=== PATIENT | female | born 1995 | race Caucasian/White ===

== ENCOUNTER 2020-06-16 17:57 | Emergency (ER) | payer SELFPAY ==
--- OUTSIDE RECORDS SUMMARY | 2020-06-16 18:00 | XMS REPORT | Continuity of Care Document ---
:1995 Author Organization [facility] t Address [address] [place] [address] Care Team Providers Name Role Phone PROVIDER, TEMP Attending Clinician Unavailable Payers Payer Name Policy Type Policy Number Effective Date Expiration Date S ource Problems This patient has no known problems. Allergies, Adverse Reactions, Alerts Allergy Allergy Status Severity Reaction(s) Onset Inactive Treating Comm ents Source Name Type Date Date Clinician Sulfa DA Active U 2019-0 [facility] ([facility] [place] [facility] [facility]: d [facility] 00 [facility] Sulfa DA Active U 2017- [facility] ([facility] 1-24 [place] [facility] 00:[facility]: d Antibiot 00 [facility] Medications This patient has no known medications. Procedures This patient has no known procedures. Results Test Description Test Time Test Comments Results Result Comments Source COMPREHENSIVE METABOLIC PANEL 2018-08-11 14:34:00 Test Item Value Reference Range Interpretation Comme nts SODIUM (test code = NA) 145 mmol/L 137-145 N POTASSIUM (test code = K) 4.3 mmol/L 3.4-5.0 N CHLORIDE (test code = CL) 108 mmol/L 98-107 H CARBON DIOXIDE (test code = 25 mmol/L 22-30 N CO2) GLUCOSE (test code = GLU) 104 mg/dL 74-106 N BLOOD UREA NITROGEN (test 11 mg/dL 7-17 N code = BUN) GLOMERULAR FILTRATION RATE >=60 max estimate >60 The estimated glomerular (test code = GFR) filtration rate is computed usingpatient ra ce, age (>18), sex, and serum creatinine. If anyof the needed data deric ments are missing the Lab oratory cannot compute an estimation of t he glomerular filt ration rate. CREATININE (test code = 0.62 mg/dL 0.52-1.04 N CREAT) TOTAL PROTEIN (test code = 7.7 g/dL 6.3-8.2 N PROT) ALBUMIN (test code = ALB) 4.5 g/dL 3.5-5.0 N CALCIUM (test code = CA) 9.3 mg/dL 8.4-10.2 N BILIRUBIN TOTAL (test code = 0.6 mg/dL 0.2-1.3 N BILT) BILIRUBIN CONJUGATED (test 0 mg/dL 0-0.3 N ~ ~~~~~~~~~~~~~~~~~~~~~~~~~~ code = BILCON) ~~~~~~~~~~~~~ ~~~~~~~~~~~~~~ ~~~~~~CONJUGATE D BILIRUBIN IS THE REPLACEM ENT ASSAY FOR DIRECTBILIRUBIN .~~~~~~~~~~~ ~~~~~~~~~~~~~~~ ~~~~~~~~~~~~ ~~~~~~~~~~~~~~~ ~~~~~~~ BILIRUBIN UNCONJUGATED (test 0.3 mg/dL 0-1.1 N code = BILUNC) SGOT/AST (test code = AST) 28 U/L 15-46 N SGPT/ALT (test code = ALT) 28 U/L 13-69 N ALKALINE PHOSPHATASE (test 55 U/L 38-126 N code = ALKP) DATE OF LAST MENSTRUAL PERIOD: 07/19/19HCG SERUM [id number] 14:34:00 Test Item Value Reference Range Interpretation Comments HCG SERUM QUAL (test code = HCGQL) NEGATIVE NEGATIVE DATE OF LAST MENSTRUAL PERIOD: 07/19/19CBC W/AUTO [id number] 14:16:00 Test Item Value Reference Range Interpretation Comments WHITE BLOOD CELL (test code = 7.7 x10 3/uL 5.0-12.0 N WBC) RED BLOOD CELL (test code = 4.85 x10 6/uL 4.20-5.40 N RBC) HEMOGLOBIN (test code = HGB) 13.0 g/dL 12.0-16.0 N HEMATOCRIT (test code = HCT) 42.1 % 36.0-46.0 N MEAN CELL VOLUME (test code = 87 fL 81-99 N MCV) MEAN CELL HGB (test code = MCH) 26.8 pg 27-31 L MEAN CELL HGB CONCENTRATION 30.9 g/dL 33-37 L (test code = MCHC) RED CELL DISTRIBUTION WIDTH 15.0 % 11.5-15.5 N (test code = RDW) PLATELET COUNT (test code = 217 x10 3/uL 130-400 N PLT) MEAN PLATELET VOLUME (test code 11.6 fL 9.4-16.4 N = MPV) NEUTROPHIL % (test code = NT%) 52.4 % 43-65 N IMMATURE GRANULOCYTE % (test 0.1 % 0.0-2.0 N code = IG%) LYMPHOCYTE % (test code = LY%) 38.5 % 20.5-45.5 N MONOCYTE % (test code = MO%) 6.0 % 5.5-11.7 N EOSINOPHIL % (test code = EO%) 2.5 % 0.9-2.9 N BASOPHIL % (test code = BA%) 0.5 % 0.2-1.0 N NUCLEATED RBC % (test code = 0.0 % 0-1.0 N NRBC%) NEUTROPHIL # (test code = NT#) 4.01 x10 3/uL 2.2-4.8 N IMMATURE GRANULOCYTE # (test 0.01 x10 3/uL 0-0.03 N code = IG#) LYMPHOCYTE # (test code = LY#) 2.95 x10 3/uL 1.3-2.9 H MONOCYTE # (test code = MO#) 0.46 x10 3/uL 0.3-0.8 N EOSINOPHIL # (test code = EO#) 0.19 x10 3/uL 0.0-0.2 N BASOPHIL # (test code = BA#) 0.04 x10 3/uL 0.0-0.1 N COMPREHENSIVE METABOLIC [id number] 14:16:00 Test Item Value Reference Range Interpretation Comments SODIUM (test code = 145 mmol/L 137-145 N NA) POTASSIUM (test code 4.3 mmol/L 3.4-5.0 N = K) CHLORIDE (test code 108 mmol/L 98-107 H = CL) CARBON DIOXIDE (test 25 mmol/L 22-30 N code = CO2) GLUCOSE (test code = 104 mg/dL 74-106 N GLU) BLOOD UREA NITROGEN 11 mg/dL 7-17 N (test code = BUN) GLOMERULAR >=60 max >60 The estimated FILTRATION RATE estimate glomerular (test code = GFR) filtration rate is computed usingpatient ra ce, age (>18), sex, and serum creatinin e. If anyof the ne eded data elements a re missing the Laboratory jane ot compute an estimation of t he glomerular filtration rate . CREATININE (test 0.62 mg/dL 0.52-1.04 N code = CREAT) TOTAL PROTEIN (test 7.7 g/dL 6.3-8.2 N code = PROT) ALBUMIN (test code = 4.5 g/dL 3.5-5.0 N ALB) CALCIUM (test code = 9.3 mg/dL 8.4-10.2 N CA) BILIRUBIN TOTAL 0.6 mg/dL 0.2-1.3 N (test code = BILT) BILIRUBIN CONJUGATED 0 mg/dL 0-0.3 N ~~~~~~~ ~~~~~~~~~~~~ (test code = BILCON) ~~~~~~~ ~~~~~~~~~~~~ ~~~~~~~~~~~~~~~ ~~~~ ~~~CONJUGATED BILIRUBIN IS TH E REPLACEMENT ASS AY FOR DIRECTBILIRUBIN .~~~ ~~~~~~~~~~~~~~~ ~~~~ ~~~~~~~~~~~~~~~ ~~~~ ~~~~~~~~~~~~~~~ ~~~~ BILIRUBIN 0.3 mg/dL 0-1.1 N UNCONJUGATED (test code = BILUNC) SGOT/AST (test code 28 U/L 15-46 N = AST) SGPT/ALT (test code 28 U/L 13-69 N = ALT) ALKALINE PHOSPHATASE 55 U/L 38-126 N (test code = ALKP) DATE OF LAST MENSTRUAL PERIOD: 07/19/19HCG SERUM [id number] 14:16:00 Test Item Value Reference Range Interpretation Comments HCG SERUM QUAL (test code = HCGQL) NEGATIVE DATE OF LAST MENSTRUAL PERIOD: 07/19/19UA RFLX MICR CULT IF [id number] 14:14:00 Test Item Value Reference Range Interpretation Comments UA COLOR (test code = Straw Yellow COLU) UA APPEARANCE (test Clear Clear code = APPU) UA GLUCOSE DIPSTICK Negative Negative (test code = DGLUU) UA BILIRUBIN DIPSTICK Negative Negative (test code = BILU) UA KETONE DIPSTICK Negative mg/dL Negative (test code = KETU) UA SPECIFIC GRAVITY 1.010 <1.030 (test code = SGU) UA BLOOD DIPSTICK Negative Negative (test code = PHIL) UA PH DIPSTICK (test 7.0 5.0-8.0 code = PERI) UA PROTEIN DIPSTICK NEGATIVE mg/dL Negative (test code = PROU) UA UROBILINOGEN Negative mg/dL Negative DIPSTICK (test code = URO) UA NITRITE DIPSTICK Negative Negative (test code = J CARLOS) UA LEUKOCYTE ESTERASE NEGATIVE Negative DIPSTICK (test code = LEUU) UA WBC (test code = 0-3 /HPF <4-5 <10 WBC/ HPF = WBCUR) PYURIA ABSENT URINE CULTURE NOT INDICATED UA RBC (test code = 0-3 /HPF <4-5 RBCU) UA BACTERIA (test None /HPF None-Rare code = BACU) UA SQUAMOUS CELLS 0-5 (RARE) /HPF 0-5 (RARE) (test code = SQU) UA MUCUS (test code = Rare /LPF <Rare A MUCU) less than 18 yrs old, neutropenic, or urological surgery? NOPrimary Indication for Culture: OtherOther Indication: PREOPChemistry - [id number] 22:58:00 Test Item Value Reference Range Interpretation Comments Chemistry - 01919.19 mIU/mL See Ranges Males and Specials (test code Nonpregn ant females: = HCGQ) Less than 10 mIU/mLPregnancy , weeks of gestat ion mIU/mL 0. 2 - 1 week 5 - 50 1 - 2 weeks 50 - 500 2 - 3 weeks 1 00 - 5,000 3 - 4 we eks 500 - 10,000 4 - 5 weeks 1,000 - 5 0,000 5 - 6 weeks 10, 000 - 100,000 6 - 8 weeks 15,000 - 200,00 0 2 - 3 months 10,000 - 100,000 Type [id number] 22:54:00 Test Item Value Reference Range Interpretation Comments Blood Type Rh (test code = BT) A POSITIVE [id number] 22:43:00 Test Item Value Reference Range Interpretation Comments Chemistry (test 136 mmol/L 136-145 N code = NA-T) Chemistry (test 3.9 mmol/L 3.5-5.1 N code = K-T) Chemistry (test 105 mmol/L 98-107 N code = CL) Chemistry (test 22 mmol/L 22-29 N code = CO2) Chemistry (test 13 mmol/L 10-20 N code = ANGP) Chemistry (test 13 mg/dL 7.0-18.7 N code = BUN) Chemistry (test 0.65 mg/dL 0.6-1.1 N code = CREATT) Chemistry (test Greater than 90 Referenc e Range for code = EGFRMDRD) Estimated G FR: Gre ater than 90 mL/min/ 1.73 m2NOTE:The MDRD equation has no t been validated for use with theeld erly (over 70 years of age), women, patients with serious comorbi d condition or pe rsons with extremes o fbody size, muscle ma ss, or nutritional status. Chemistry (test 82 mg/dL 70-105 N code = GLU-T) Chemistry (test 9.3 mg/dL 7.8-10.44 N code = CA) Chemistry (test 0.4 mg/dL 0.2-1.2 N code = TBILI) Chemistry (test 7.5 g/dL 6.0-8.3 N code = TP) Chemistry (test 4.1 g/dL 3.5-5.0 N code = ALB) Chemistry (test 3.4 g/dL 2.4-3.5 N code = GLOB) Chemistry (test 1.2 g/dL 1.2-2.2 N code = AG) Chemistry (test 52 U/L 40-150 N code = ALP) Chemistry (test 14 U/L 5-34 N code = AST) Chemistry (test 10 U/L 8-55 N code = ALT) [id number] 22:37:00 Test Item Value Reference Range Interpretation Comments Urinalysis (test code = YELLOW Yellow UACLR) Urinalysis (test code = CLEAR Clear UACLY) Urinalysis (test code = 1.017 1.002-1.036 N SPGR) Urinalysis (test code = 6.0 5.0-9.0 N PERI) Urinalysis (test code = Moderate Negative A UALEU) Urinalysis (test code = Negative Negative UANIT) Urinalysis (test code = Negative mg/dL Neg-Trace PROUADIP) Urinalysis (test code = Negative mg/dL Negative GLUCU) Urinalysis (test code = Negative mg/dL Negative KETU) Urinalysis (test code = 1.0 mg/dL 0.2-1.0 UAUROB) Urinalysis (test code = Negative Negative UABIL) Urinalysis (test code = Negative Negative UABLD) Urinalysis (test code = 0-3 HPF 0-3 UARBC) Urinalysis (test code = 0-3 HPF 0-3 UAWBC) Urinalysis (test code = 0-3 HPF 0-3 UASQUAM) Urinalysis (test code = Rare-Few HPF None Seen UABAC) Urinalysis (test code = 0-3 HYALINE CAST LPF 0-3 Hyaline UACAST) Urine Source: Urine [id number] 22:25:00 Test Item Value Reference Range Interpretation Comments Hematology (test code = WBCT) 7.4 thou/uL 4.8-10.8 N Hematology (test code = RBCT) 3.89 mill/uL 4.20-5.40 L Hematology (test code = HGBT) 12.1 g/dL 12.0-16.0 N Hematology (test code = HCTT) 34.5 % 36.0-47.0 L Hematology (test code = MCV) 88.6 fl 81.0-99.0 N Hematology (test code = MCH) 31.0 pg 27.0-31.0 N Hematology (test code = MCHC) 35.0 g/dL 32.0-36.0 N Hematology (test code = RDW) 12.9 % 11.5-14.5 N Hematology (test code = PLTT) 220 thou/uL 130-400 N Hematology (test code = MPV) 7.9 fL 7.4-10.4 N Hematology (test code = %NEUT) 59.4 % 42.0-75.0 N Hematology (test code = %LYMPH) 32.1 % 21.0-51.0 N Hematology (test code = %MONO) 6.6 % 0.0-10.0 N Hematology (test code = %EOS) 1.5 % 0.0-10.0 N Hematology (test code = %BASO) 0.3 % 0.0-1.0 N Hematology (test code = NEUT#) 4.4 thou/uL 1.40-6.50 N Hematology (test code = LYMPH#) 2.4 thou/uL 1.20-3.40 N Hematology (test code = MONO#) 0.5 thou/uL 0.11-0.59 N Hematology (test code = EOS#) 0.1 thou/uL 0.0-0.7 N Hematology (test code = BASO#) 0.0 thou/uL 0.0-0.2 N Chemistry - [id number] 22:23:00 Test Item Value Reference Range Interpretation Comments Chemistry - Specials POSITIVE NEGATIVE A Method of sensitivity- (test code = BHCGST) Indete rminant: results should be repeated after 48-72 hrs Positive: results may be detected as ear ly as 1 day after the first missed menses.
[2020-06-16 19:55] LABS: Urine Blood 1+ (NEG); Urine Glucose NEGATIVE (NEG); Urine Protein NEGATIVE (NEG); Urine pH 6.5 (5.0-7.0)
[2020-06-16 20:46] LABS: Urine Bacteria <20 /HPF (<20)
[2020-06-16 20:47] LABS: Absolute Lymphocytes (CBC) 2.9 K/uL (0.7-4.9); Basophils % 0.6 % (0-1.3); Hematocrit 38.3 % (36.0-45.0); Lymphocytes % 37.9 % (15.3-44.8); MPV 10.3 fL (7.6-11.3); RBC Red Blood Cell Count 4.33 M/uL (3.86-4.86)
[2020-06-16 21:00] LABS: BUN Blood Urea Nitrogen 11 mg/dL (7-18); Bicarbonate 26 mmol/L (21-32); Glucose Level 80 mg/dL (74-106); Potassium 3.4 mmol/L (3.5-5.1); Sodium Level 139 mmol/L (136-145)
[2020-06-16] MEDS ORDERED: MORPHINE 2 MG/ML SYR ONE (22:43)
[2020-06-16] MEDS ORDERED: ONDANSETRON 4 MG/2 ML VIAL ONE (22:43)
--- NOTE | 2020-06-16 23:33 | EDPHYS ---
Physician Documentation [facility] Name: Melodie Thornton Age: 24 yrs Sex: Female : 1995 Arrival Date: 06/16/2020 Time: 17:59 Bed 6 Private MD: ED Physician Deepak Burk HPI: 06/16 20:24 This 24 yrs old Female presents to ER via Ambulatory with complaints of mh7 Vaginal Bleeding. 20:24 The patient presents with vaginal bleeding that is moderate. Onset: The mh7 symptoms/episode began/occurred 1 week(s) ago. Modifying factors: The symptoms are alleviated by nothing, the symptoms are aggravated by nothing. Associated signs and symptoms: Pertinent negatives: constipation, cramping, diarrhea, dyspareunia, dysuria, fever, hematuria, nausea, urinary frequency, vaginal discharge, vomiting. Severity of symptoms: At their worst the symptoms were moderate, 2 day(s) ago, in the emergency department the symptoms have improved, moderately. The patient's method of control includes tubal ligation. 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 - Social history:: Smoking status: Patient reports the use of cigarette tobacco products, smokes one-half pack cigarettes per day. ROS: 20:24 Constitutional: Negative for fever, chills, and weight loss, Eyes: Negative for injury, mh7 pain, redness, and discharge, ENT: Negative for injury, pain, and discharge, Neck: Negative for injury, pain, and swelling, Cardiovascular: Negative for chest pain, palpitations, and edema, Respiratory: Negative for shortness of breath, cough, wheezing, and pleuritic chest pain, Abdomen/GI: Negative for abdominal pain, nausea, vomiting, diarrhea, and constipation, Back: Negative for injury and pain, MS/Extremity: Negative for injury and deformity, Skin: Negative for injury, rash, and discoloration, Neuro: Negative for headache, weakness, numbness, tingling, and seizure, Psych: Negative for depression, anxiety, suicide ideation, homicidal ideation, and hallucinations, Allergy/Immunology: Negative for hives, rash, and allergies, Endocrine: Negative for neck swelling, polydipsia, polyuria, polyphagia, and marked weight changes, Hematologic/Lymphatic: Negative for swollen nodes, abnormal bleeding, and unusual bruising. Exam: 20:24 Constitutional: This is a well developed, well nourished patient who is awake, alert, mh7 and in no acute distress. Head/Face: Normocephalic, atraumatic. Eyes: Pupils equal round and reactive to light, extra-ocular motions intact. Lids and lashes normal. Conjunctiva and sclera are non-icteric and not injected. Cornea within normal limits. Periorbital areas with no swelling, redness, or edema. Neck: Trachea midline, no thyromegaly or masses palpated, and no cervical lymphadenopathy. Supple, full range of motion without nuchal rigidity, or vertebral point tenderness. No Meningismus. Chest/axilla: Normal chest wall appearance and motion. Nontender with no deformity. No lesions are appreciated. Cardiovascular: Regular rate and rhythm with a normal S1 and S2. No gallops, murmurs, or rubs. Normal PMI, no JVD. No pulse deficits. Respiratory: Lungs have equal breath sounds bilaterally, clear to auscultation and percussion. No rales, rhonchi or wheezes noted. No increased work of breathing, no retractions or nasal flaring. 20:24 Back: No spinal tenderness. No costovertebral tenderness. Full range of motion. Skin: Warm, dry with normal turgor. Normal color with no rashes, no lesions, and no evidence of cellulitis. MS/ Extremity: Pulses equal, no cyanosis. Neurovascular intact. Full, normal range of motion. Neuro: Awake and alert, GCS 15, oriented to person, place, time, and situation. Cranial nerves II-XII grossly intact. Motor strength 5/5 in all extremities. Sensory grossly intact. Cerebellar exam normal. Normal gait. Psych: Awake, alert, with orientation to person, place and time. Behavior, mood, and affect are within normal limits. 20:24 Abdomen/GI: Inspection: abdomen appears normal, Bowel sounds: normal, in all quadrants, Palpation: moderate abdominal tenderness, in the suprapubic area and left lower quadrant, Rectal exam: the exam is deferred, because of patient request, Indicators: McBurney's point is not tender, Whitfield's sign is negative, Rovsing's sign is negative, Obturator sign is negative, Psoas sign is negative, Liver: no appreciated palpable abnormalities, Hernia: not appreciated. 23:29 : CVA tenderness, is absent, Pelvic Exam: External exam: is normal, Speculum exam: mh7 mild bleeding, no cervicitis, os that is closed, no tissue in cervix is seen, no tissue in vagina is seen, bimanual exam reveals no cervical motion tenderness, os that is closed, normal sized uterus, no uterine tenderness, no adnexa tenderness or masses bilaterally, discharge, is not appreciated, the nurse was present for the exam, Bladder: is normal, non-distended, non-tender, Rectal exam: is refused by patient or guardian. Vital Signs: 18:09 BP 122 / 74; Pulse 66; Resp 16; Temp 97.7; Pulse Ox 100% on R/A; Pain 5/10; hb 21:00 BP 117 / 85; Pulse 75; Resp 17; Pulse Ox 100% ; rr5 22:00 BP 124 / 89; Pulse 70; Resp 19; Pulse Ox 98% ; rr5 23:00 BP 126 / 78; Pulse 63; Resp 15; Pulse Ox 98% ; rr5 23:50 BP 110 / 70; Pulse 60; Resp 19; Pulse Ox 99% ; rr5 MDM: 23:29 Differential diagnosis: appendicitis, dysmenorrhea, ectopic , endometriosis, mh7 kidney stone, menometrorrhagia, threatened Ab, inevitable Ab, complete Ab, retained Ab, septic Ab, missed Ab, uterine fibroids, urinary tract infection, vaginosis. Data reviewed: vital signs, nurses notes, lab test result(s), CBC, electrolytes, urinalysis, UPT: negative radiologic studies, CT scan. Data interpreted: Pulse oximetry: on room air is 100 %. Interpretation: normal. Counseling: I had a detailed discussion with the patient and/or guardian regarding: the historical points, exam findings, and any diagnostic results supporting the discharge/admit diagnosis, lab results, radiology results, the need for outpatient follow up, an OB/Gyne specialist, to return to the emergency department if symptoms worsen or persist or if there are any questions or concerns that arise at home. Response to treatment: the patient's symptoms have markedly improved after treatment. 23:33 Patient medically screened. [facility] 06/16 18:03 Order name: Urine Culture [facility] 06/16 18:03 Order name: Urine Microscopic Only; Complete Time: 20:47 [facility] 06/16 19:45 Order name: Urine Dipstick--Ancillary (enter results); Complete Time: 20:00 06/16 19:45 Order name: Urine --Ancillary (enter results); Complete Time: 20:00 06/16 20:00 Order name: Abo/rh Typing; Complete Time: 22:04 [facility] 06/16 20:00 Order name: Basic Metabolic Panel; Complete Time: 21:10 [facility] 06/16 18:03 Order name: Urine Test (obtain specimen); Complete Time: 19:43 [facility] 06/16 18:03 Order name: Urine Dipstick-Ancillary (obtain specimen); Complete Time: 19:43 [facility] 06/16 20:00 Order name: CBC with Diff; Complete Time: 20:51 [facility] 06/16 20:00 Order name: IV Saline Lock; Complete Time: 21:18 [facility] 06/16 20:00 Order name: Labs collected and sent; Complete Time: 21:18 [facility] 06/16 21:11 Order name: CT Abd/Pelvis - IV Contrast Only [facility] 06/16 20:00 Order name: NPO; Complete Time: 21:18 [facility] Administered Medications: 22:30 Drug: Zofran (Ondansetron) 4 mg Route: IVP; Site: right antecubital; rr5 23:30 Follow up: Response: No adverse reaction; Pain is decreased; RASS: Alert and Calm (0) rr5 22:32 Drug: morphine 2 mg {Note: rass 0.} Route: IVP; Site: right antecubital; rr5 23:30 Follow up: Response: No adverse reaction; Pain is decreased; RASS: Alert and Calm (0) rr5 Disposition: 06/16/20 23:33 Discharged to Home. Impression: Abnormal uterine and vaginal bleeding, unspecified, Left ovarian Cyst. - Condition is Stable. - Discharge Instructions: Abnormal Uterine Bleeding, Ovarian Cyst, [id number]. - Medication Reconciliation Form, Thank You Letter, Antibiotic Education, Prescription Opioid Use form. - Follow up: Michelle Peña MD; When: 1 - 2 days; Reason: Worsening of condition, Recheck today's complaints. - Problem is new. - Symptoms have improved. Signatures: Dispatcher [employer] EDMS Brooklynn Red, FLIGHT ENGINEER PERFORMANCE QUALIFIED-C FLIGHT ENGINEER PERFORMANCE QUALIFIED-Csnw Madelyn Heredia, RN RN hb Rodney Guerrier RN RN rr5 Deepak Burk MD MD 7 Corrections: (The following items were deleted from the chart) 23:32 18:13 PSHx: None; hb rr5 23:52 23:33 06/16/2020 23:33 Discharged to Home. Impression: Abnormal uterine and vaginal rr5 bleeding, unspecified; Left ovarian Cyst. Condition is Stable. Forms are Medication Reconciliation Form, Thank You Letter, Antibiotic Education, Prescription Opioid Use. Follow up: Michelle Peña; When: 1 - 2 days; Reason: Worsening of condition, Recheck today's complaints. Problem is new. Symptoms have improved. [facility] 23:58 23:52 06/16/2020 23:33 Discharged to Home. Impression: Abnormal uterine and vaginal rr5 bleeding, unspecified; Left ovarian Cyst. Condition is Stable. Discharge Instructions: Abnormal Uterine Bleeding, Ovarian Cyst, [id number]. Forms are Medication Reconciliation Form, Thank You Letter, Antibiotic Education, Prescription Opioid Use. Follow up: Michelle Peña; When: 1 - 2 days; Reason: Worsening of condition, Recheck today's complaints. Problem is new. Symptoms have improved. rr5
--- NOTE | 2020-06-16 23:33 | ER ---
Nurse's Notes [facility] Name: Melodie Thornton Age: 24 yrs Sex: Female : 1995 Arrival Date: 06/16/2020 Time: 17:59 Bed 6 Private MD: Diagnosis: Abnormal uterine and vaginal bleeding, unspecified;Left ovarian Cyst Presentation: 06/16 18:09 Chief complaint: Patient states: Spotty vaginal bleeding x 2 days, low back pain and hb left lower abdominal pain today. Coronavirus screen: At this time, the client does not indicate any symptoms associated with coronavirus-19. Ebola Screen: No symptoms or risks identified at this time. Initial Sepsis Screen: Does the patient meet any 2 criteria? No. Patient's initial sepsis screen is negative. Does the patient have a suspected source of infection? No. Patient's initial sepsis screen is negative. Risk Assessment: Do you want to hurt yourself or someone else? Patient reports no desire to harm self or others. Onset of symptoms was June 13, 2020. 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 - Social history:: Smoking status: Patient reports the use of cigarette tobacco products, smokes one-half pack cigarettes per day. Screenin:30 Abuse screen: Denies threats or abuse. Denies injuries from another. Nutritional rr5 screening: No deficits noted. Tuberculosis screening: No symptoms or risk factors identified. Fall Risk IV access (20 points). Total Renae Fall Scale indicates No Risk (0-24 pts). Assessment: 20:00 General: Appears in no apparent distress. uncomfortable, Behavior is calm, cooperative, rr5 appropriate for age. 20:00 Pain: Complains of pain in abdomen and pelvis and left lower quadrant Pain radiates to rr5 left low back and right low back Pain currently is 5 out of 10 on a pain scale. Quality of pain is described as aching, Pain began gradually, Is intermittent. Neuro: Level of Consciousness is awake, alert, obeys commands, Oriented to person, place, time. Cardiovascular: Capillary refill < 3 seconds Patient's skin is warm and dry. Respiratory: Airway is patent Respiratory effort is even, unlabored, Respiratory pattern is regular, symmetrical. GI: Reports lower abdominal pain. : Urine is clear, Reports vaginal bleeding that is spotty. EENT: No signs and/or symptoms were reported regarding the EENT system. Derm: Skin is intact, is healthy with good turgor, Skin temperature is warm. Musculoskeletal: Circulation, motion, and sensation intact. Capillary refill < 3 seconds. 21:00 Reassessment: Patient appears in no apparent distress at this time. Patient is alert, rr5 oriented x 3, equal unlabored respirations, skin warm/dry/pink. 22:00 Reassessment: Patient appears in no apparent distress at this time. Patient is alert, rr5 oriented x 3, equal unlabored respirations, skin warm/dry/pink. for CT abdomen with contrast. 23:10 Reassessment: Patient appears in no apparent distress at this time. Patient is alert, rr5 oriented x 3, equal unlabored respirations, skin warm/dry/pink. no complaints made Patient states feeling better. Patient states symptoms have improved. 23:50 Reassessment: Patient appears in no apparent distress at this time. Patient is alert, rr5 oriented x 3, equal unlabored respirations, skin warm/dry/pink. discharge instruction given and explained without complaints made. Vital Signs: 18:09 BP 122 / 74; Pulse 66; Resp 16; Temp 97.7; Pulse Ox 100% on R/A; Pain 5/10; hb 21:00 BP 117 / 85; Pulse 75; Resp 17; Pulse Ox 100% ; rr5 22:00 BP 124 / 89; Pulse 70; Resp 19; Pulse Ox 98% ; rr5 23:00 BP 126 / 78; Pulse 63; Resp 15; Pulse Ox 98% ; rr5 23:50 BP 110 / 70; Pulse 60; Resp 19; Pulse Ox 99% ; rr5 ED Course: 17:59 Patient arrived in ED. as 18:12 Triage completed. hb 18:13 Arm band placed on. hb 19:42 Deepak Burk MD is Attending Physician. [facility] 20:06 Guerrier, Rodney, RN is Primary Nurse. rr5 20:30 Patient has correct armband on for positive identification. Placed in gown. Bed in low rr5 position. Call light in reach. Side rails up X2. Pulse ox on. NIBP on. 20:30 Inserted saline lock: 20 gauge in right antecubital area, using aseptic technique. rr5 ,using aseptic technique. inserted by chin Blood collected. 22:11 CT Abd/Pelvis - IV Contrast Only In Process Unspecified. EDMS 23:29 Assist provider with pelvic exam: Set up pelvic tray. Performed by Deepak Burk MD rr5 Patient tolerated chaperoned by darell thomas. 23:32 Michelle Peña MD is Referral Physician. [facility] 23:45 IV discontinued, intact, bleeding controlled, No redness/swelling at site. Pressure rr5 dressing applied. 23:56 Primary Nurse role handed off by Rodney Guerrier RN rr5 Administered Medications: 22:30 Drug: Zofran (Ondansetron) 4 mg Route: IVP; Site: right antecubital; rr5 23:30 Follow up: Response: No adverse reaction; Pain is decreased; RASS: Alert and Calm (0) rr5 22:32 Drug: morphine 2 mg {Note: rass 0.} Route: IVP; Site: right antecubital; rr5 23:30 Follow up: Response: No adverse reaction; Pain is decreased; RASS: Alert and Calm (0) rr5 Outcome: 23:33 Discharge ordered by . 7 23:50 Discharged to home ambulatory. rr5 23:50 Condition: stable 23:50 Discharge instructions given to patient, Instructed on discharge instructions, follow up and referral plans. Demonstrated understanding of instructions, follow-up care. 23:52 Patient left the ED. rr5 23:58 Patient left the ED. rr5 Signatures: Dispatcher [employer] Tiera Jackson Heather, RN RN Rodney Guerrier RN RN rr5 Deepak Burk MD MD [facility] Corrections: (The following items were deleted from the chart) 23:32 18:13 PSHx: None; hb rr5
[2020-06-17 03:23] VITALS: TEMP 97.7
[2020-06-17 03:46] VITALS: BP 110/70; O2SAT 99
--- NOTE | 2020-06-18 10:51 | RAD REPORT ---
EXAM DESCRIPTION: CT - Abdomen Pelvis W Contrast - 06/17/2020 4:04 am CLINICAL HISTORY: The patient is 24 years old and is Female; ABD PAIN TECHNIQUE: Axial computed tomography images of the abdomen and pelvis with intravenous contrast. S agittal and coronal reformatted images were created and reviewed. This CT exam was performed using one or more of the following dose reduction techniques: automated exposure control, adjustment of t he mA and/or kV according to patient size, and/or use of iterative reconstruction technique. DLP: 944 mGy*cm COMPARISON: None. FINDINGS: LUNG BASES: Lung bases are clear. HEART: Visualized heart is normal. ABDOMEN: LIVER: Unremarkable. No mass. GALLBLADDER AND BILE DUCTS: Unremarkable. No calcified stones. No ductal dilation. PANCREAS: Unremarkable. No mass. No ductal dilation. SPLEEN: Unremarkable. No splenomegaly. ADRENALS: Unremarkable. No mass. KIDNEYS AND URETERS: Unremarkable. No solid mass. No hydronephrosis. STOMACH AND BOWEL: Unremarkable. No obstruction. No mucosal thickening. PELVIS: APPENDIX: The appendix is seen and is within normal limits. BLADDER: Bladder is decompressed. REPRODUCTIVE: 1.6 cm left ovarian cyst. Prior tubal ligation. ABDOMEN and PELVIS: INTRAPERITONEAL SPACE: Unremarkable. No free air. No significant fluid collection. BONES/JOINTS: No acute fracture. No dislocation. SOFT TISSUES: Unremarkable. VASCULATURE: Unremarkable. No abdominal aortic aneurysm. LYMPH NODES: Unremarkable. No enlarged lymph nodes. IMPRESSION: 1. No acute abdominal or pelvic abnormality. 2. 1.6 cm left ovarian cyst. No follow-up imaging is recommended. Reference: US recommendations based on Radiology 2010 Mar;256(3):943-54; CT/MR recommendations based on J Am Nav Radiol 2013;10:675-681. 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 The interpreting r adiologist is fully responsible for the content of the report.
== END 2020-06-16 23:58 | disposition home or self-care (01) ==
LOC: ER 17:57
DX: N83.202 Unspecified ovarian cyst, left side (principal); F17.210 Nicotine dependence, cigarettes, uncomplicated; Z88.2 Allergy status to sulfonamides
CPT/HCPCS: 36415; 74177; 80048; 81003; 81015; 81025; 85025; 86900; 86901; 87086; 87088; 96374; 96375; 99284; J2270; J2405; Q9967

== ENCOUNTER 2020-09-14 20:18 | Emergency (ER) | payer SELFPAY ==
--- OUTSIDE RECORDS SUMMARY | 2020-09-14 20:22 | XMS REPORT | Continuity of Care Document ---
:1995 Author Organization [facility] t Address [address] [place] [address] Care Team Providers Name Role Phone PROVIDER, TEMP Attending Clinician Unavailable Payers Payer Name Policy Type Policy Number Effective Date Expiration Date S ource Problems This patient has no known problems. Allergies, Adverse Reactions, Alerts Allergy Allergy Status Severity Reaction(s) Onset Inactive Treating Comm ents Source Name Type Date Date Clinician Sulfa DA Active U 2019-0 [facility] ([facility] 1 [place] [facility] 00:00: d Antibiot 00 [facility]) Center Sulfa DA Active U 2017- [facility] ([facility] - [place] [facility] 00:00: d Antibiot 00 Medical [...] DATE OF LAST MENSTRUAL PERIOD: 07/19/19HCG SERUM [id number] 14:34:00 Test Item Value Reference Range Interpretation Comments HCG SERUM QUAL (test code = HCGQL) NEGATIVE NEGATIVE DATE OF LAST MENSTRUAL PERIOD: 07/19/19CBC W/AUTO [id number] 14:16:00 Test Item Value Reference Range Interpretation [...] 0.04 x10 3/uL 0.0-0.1 N COMPREHENSIVE METABOLIC [id number] 14:16:00 Test Item Value Reference Range Interpretation [...] DATE OF LAST MENSTRUAL PERIOD: 07/19/19HCG SERUM [id number] 14:16:00 Test Item Value Reference Range Interpretation Comments HCG SERUM QUAL (test code = HCGQL) NEGATIVE DATE OF LAST MENSTRUAL PERIOD: 07/19/19UA RFLX MICR CULT IF [id number] 14:14:00 Test Item Value Reference Range Interpretation [...] Indication for Culture: OtherOther Indication: PREOPChemistry - [id number] 22:58:00 Test Item Value Reference Range Interpretation Comments Chemistry - 21953.19 mIU/mL See Ranges Males and Specials (test [...] - 3 months 10,000 - 100,000 Type [id number] 22:54:00 Test Item Value Reference Range Interpretation Comments Blood Type Rh (test code = BT) A POSITIVE [id number] 22:43:00 Test Item Value Reference Range Interpretation [...] 10 U/L 8-55 N code = ALT) [id number] 22:37:00 Test Item Value Reference Range Interpretation [...] LPF 0-3 Hyaline UACAST) Urine Source: Urine [id number] 22:25:00 Test Item Value Reference Range Interpretation [...] BASO#) 0.0 thou/uL 0.0-0.2 N Chemistry - [id number] 22:23:00 Test Item Value Reference Range Interpretation Comments Chemistry - Specials POSITIVE NEGATIVE A Method of sensitivity- (test code = BHCGST) Indete rminant: results should be repeated after 48-72 hrs Positive: results may be detected as ear ly as 1 day after the first missed menses.
[2020-09-14] MEDS ORDERED: HYDROCODONE/APAP 10/325 TAB ONE (20:58)
--- NOTE | 2020-09-14 21:12 | RAD REPORT ---
EXAM DESCRIPTION: RAD - Ankle Right 3 View - 09/14/2020 8:56 pm CLINICAL HISTORY: DEFORMITY COMPARISON: No comparisons FINDINGS: Soft tissue swelling is seen affecting the lateral malleolus. No acute fracture or disloca tion.
--- NOTE | 2020-09-14 21:13 | EDPHYS ---
Physician Documentation [facility] Name: Melodie Thornton Age: 24 yrs Sex: Female : 1995 Arrival Date: 09/14/2020 Time: 20:19 Bed 4 Private MD: ED Physician Lucas Anderson HPI: 09/14 21:16 This 24 yrs old Female presents to ER via Wheelchair with complaints of Ankle ps1 Swelling, Ankle Injury. 21:[facility] injuring her right ankle. ps1 Significant swelling and pain. No obvious fracture. Pain with movement. Mild numbness to affected area. Able to move foot. . 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 - Social history:: Smoking status: Patient reports the use of cigarette tobacco products, smokes one-half pack cigarettes per day. ROS: 21:16 Constitutional: Negative for fever, chills, and weight loss, Cardiovascular: Negative ps1 for chest pain, palpitations, and edema, Respiratory: Negative for shortness of breath, cough, wheezing, and pleuritic chest pain, Abdomen/GI: Negative for abdominal pain, nausea, vomiting, diarrhea, and constipation, Skin: Negative for injury, rash, and discoloration, Neuro: Negative for headache, weakness, numbness, tingling, and seizure. 21:16 MS/extremity: Positive for injury or acute deformity, swelling, tenderness, of the right ankle. Exam: 21:16 Constitutional: This is a well developed, well nourished patient who is awake, alert, ps1 and in no acute distress. Head/Face: Normocephalic, atraumatic. Eyes: Pupils equal round and reactive to light, extra-ocular motions intact. Lids and lashes normal. Conjunctiva and sclera are non-icteric and not injected. Cardiovascular: Regular rate and rhythm. No gallops, murmurs, or rubs. Normal PMI, no JVD. No pulse deficits. Respiratory: Lungs have equal breath sounds bilaterally, clear to auscultation and percussion. No rales, rhonchi or wheezes noted. No increased work of breathing, no retractions or nasal flaring. Abdomen/GI: Soft, non-tender, with normal bowel sounds. No distension or tympany. No guarding or rebound. No evidence of tenderness throughout. Skin: Warm, dry with normal turgor. Normal color with no rashes, no lesions, and no evidence of cellulitis. 21:16 Musculoskeletal/extremity: Extremities: grossly normal except: noted in the right ankle: pain, swelling, tenderness. Vital Signs: 20:26 BP 118 / 76; Pulse 97; Resp 16; Temp 97.5; Pulse Ox 96% ; Weight 63.96 kg; Height 5 ft. ll1 3 in. (160.02 cm); Pain 10/10; 21:18 BP 110 / 75; Pulse 90; Resp 17; Pulse Ox 98% ; rr5 20:26 Body Mass Index 24.98 (63.96 kg, 160.02 cm) ll1 MDM: 20:36 Patient medically screened. ps1 21:20 Differential diagnosis: fracture, sprain, strain, parasthesia, and others. Data ps1 reviewed: vital signs, radiologic studies, and as a result, I will discharge patient. Counseling: I had a detailed discussion with the patient and/or guardian regarding: the historical points, exam findings, and any diagnostic results supporting the discharge/admit diagnosis, radiology results, the need for outpatient follow up, to return to the emergency department if symptoms worsen or persist or if there are any questions or concerns that arise at home. 09/14 20:35 Order name: Ankle Right 3 View XRAY ps1 Administered Medications: 20:45 Drug: [place] 10 mg-325 mg 1 tabs {Note: rass 0.} Route: PO; rr5 21:18 Follow up: Response: No adverse reaction rr5 21:18 Follow up: Response: RASS: Alert and Calm (0) rr5 Disposition: 09/14/20 21:13 Discharged to Home. Impression: Right ankle sprain. - Condition is Stable. - Discharge Instructions: Ankle Sprain. - Prescriptions for Anaprox DS 550 mg Oral Tablet - take 1 tablet by ORAL route every 12 hours As needed; 20 tablet. Robaxin 500 mg Oral Tablet - take 2 tablet by ORAL route every 6 hours As needed; 40 tablet. Medrol (Marquise) 4 mg Oral Tablets, Dose Pack - take 1 tablet by ORAL route as directed - follow package instructions; 1 packet. - Medication Reconciliation Form, Thank You Letter, Antibiotic Education, Prescription Opioid Use form. - Follow up: Marty Li MD; When: As needed; Reason: Further diagnostic work-up, Continuance of care. Follow up: Emergency Department; When: As needed; Reason: Worsening of condition. - Problem is new. - Symptoms have improved. Signatures: Dispatcher [employer] EDMS Lucas Anderson MD MD ps1 Rodney Guerrier RN RN rr5 Bairon Metz RN RN ll1 Corrections: (The following items were deleted from the chart) 21:20 21:13 09/14/2020 21:13 Discharged to Home. Impression: Right ankle sprain. Condition is rr5 Stable. Forms are Medication Reconciliation Form, Thank You Letter, Antibiotic Education, Prescription Opioid Use. Follow up: Dr. Marty Li; When: As needed; Reason: Further diagnostic work-up, Continuance of care. Follow up: Emergency Department; When: As needed; Reason: Worsening of condition. Problem is new. Symptoms have improved. ps1
--- NOTE | 2020-09-14 21:13 | ER ---
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 Coronavirus screen: Client denies travel out of the [place] in the last 14 days. At this time, the client does not indicate any symptoms associated with coronavirus-19. Ebola Screen: Patient denies travel to an Ebola-affected area in the 21 days before illness onset. Initial Sepsis Screen: Does the patient meet any 2 criteria? HR > 90 bpm. No. Patient's initial sepsis screen is negative. Does the patient have a suspected source of infection? Yes: Bone or joint infection. Risk Assessment: Do you want to hurt yourself or someone else? Patient reports no desire to harm self or others. Onset of symptoms was September 14, 2020. 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 - Social history:: Smoking status: Patient reports the use of cigarette tobacco products, smokes one-half pack cigarettes per day. Screenin:30 Abuse screen: Denies threats or abuse. Denies injuries from another. Nutritional rr5 screening: No deficits noted. Tuberculosis screening: No symptoms or risk factors identified. Fall Risk None identified. Gait- Impaired (20 pts.). Total Renae Fall Scale indicates High Risk Score (45 or more points). Fall prevention measures have been instituted. Side Rails Up X 2 Frequent Obs/Assessments Occuring As available patient and family educated on Fall Prevention Program and Strategies. Assessment: 20:30 General: Appears in no apparent distress. comfortable, Behavior is calm, cooperative, rr5 appropriate for age. 20:30 Pain: Complains of pain in right ankle Pain Quality of pain is described as aching, rr5 Pain began suddenly, Is intermittent. Neuro: Level of Consciousness is awake, alert, obeys commands, Oriented to person, place, time. Cardiovascular: Capillary refill < 3 seconds Patient's skin is warm and dry. Respiratory: Airway is patent Respiratory effort is even, unlabored, Respiratory pattern is regular, symmetrical. GI: No signs and/or symptoms were reported involving the gastrointestinal system. : No signs and/or symptoms were reported regarding the genitourinary system. EENT: No signs and/or symptoms were reported regarding the EENT system. Derm: Skin is intact, is healthy with good turgor, Skin temperature is warm. Musculoskeletal: Capillary refill < 3 seconds, Reports pain in right ankle. 21:17 Reassessment: Patient appears in no apparent distress at this time. Patient is alert, rr5 oriented x 3, equal unlabored respirations, skin warm/dry/pink. discharge instruction given and explained without complaints made Patient states symptoms have improved. Vital Signs: 20:26 BP 118 / 76; Pulse 97; Resp 16; Temp 97.5; Pulse Ox 96% ; Weight 63.96 kg; Height 5 ft. ll1 3 in. (160.02 cm); Pain 10/10; 21:18 BP 110 / 75; Pulse 90; Resp 17; Pulse Ox 98% ; rr5 20:26 Body Mass Index 24.98 (63.96 kg, 160.02 cm) ll1 ED Course: 20:19 Patient arrived in ED. cl3 20:23 Lucas Anderson MD is Attending Physician. ps1 20:27 Triage completed. ll1 20:28 Arm band placed on. ll1 20:31 Marcelino Guadarrama, ARIANA is Primary Nurse. mg2 20:35 Patient has correct armband on for positive identification. Bed in low position. Call rr5 light in reach. right ankle elevation, refused for ice pack. 20:56 Ankle Right 3 View XRAY In Process Unspecified. EDMS 21:12 Marty Li MD is Referral Physician. ps1 21:17 No provider procedures requiring assistance completed. Patient did not have IV access rr5 during this emergency room visit. 3D boot applied to right foot. Administered Medications: 20:45 Drug: [place] 10 mg-325 mg 1 tabs {Note: rass 0.} Route: PO; rr5 21:18 Follow up: Response: No adverse reaction rr5 21:18 Follow up: Response: RASS: Alert and Calm (0) rr5 Outcome: 21:13 Discharge ordered by MD. ps1 21:18 Discharged to home ambulatory. rr5 21:18 Condition: stable 21:18 Discharge instructions given to patient, Instructed on discharge instructions, follow up and referral plans. medication usage, Demonstrated understanding of instructions, follow-up care, medications, Prescriptions given X 3. 21:20 Patient left the ED. rr5 Signatures: Dispatcher [employer] EDMS Lucas Anderson MD MD ps1 Marcelino Guadarrama RN RN mg2 Rodney Guerrier RN RN rr5 Shirley Metz cl3 Bairon Metz RN RN ll1
[2020-09-14 22:39] VITALS: TEMP 97.5
[2020-09-14 22:40] VITALS: BP 110/75; O2SAT 98
== END 2020-09-14 21:20 | disposition home or self-care (01) ==
LOC: ER 20:18
DX: S93.401A Sprain of unspecified ligament of right ankle, initial encounter (principal); W19.XXXA Unspecified fall, initial encounter; Y93.44 Activity, trampolining; Y92.831 Amusement park as the place of occurrence of the external cause; Z88.2 Allergy status to sulfonamides; F17.210 Nicotine dependence, cigarettes, uncomplicated
CPT/HCPCS: 99284

== ENCOUNTER 2021-03-12 20:07 | Observation (INO) | payer BC, SELFPAY ==
--- OUTSIDE RECORDS SUMMARY | 2021-03-12 20:10 | XMS REPORT | Continuity of Care Document ---
:1995 Author Organization [facility] t Address [address] [place] [address] Care Team Providers Name Role Phone PROVIDER, TEMP Attending Clinician Unavailable Payers Payer Name Policy Type Policy Number Effective Date Expiration Date S ource Problems This patient has no known problems. Allergies, Adverse Reactions, Alerts Allergy Allergy Status Severity Reaction(s) Onset Inactive Treating Comm ents Source Name Type Date Date Clinician Sulfa DA Active U 2019-0 [facility] ([facility] 08-11 [facility] [facility] 00:00: d Antibiot 00 Medical ics) Center Sulfa DA Active U 2017- [facility] ([facility] 08-12 [place] [facility] 00:00: d Antibiot 00 Medical [...] DATE OF LAST MENSTRUAL PERIOD: 07/19/19HCG SERUM [id number] 14:34:00 Test Item Value Reference Range Interpretation Comments HCG SERUM QUAL (test code = HCGQL) NEGATIVE NEGATIVE DATE OF LAST MENSTRUAL PERIOD: 07/19/19CBC W/AUTO [id number] 14:16:00 Test Item Value Reference Range Interpretation [...] 0.04 x10 3/uL 0.0-0.1 N COMPREHENSIVE METABOLIC [id number] 14:16:00 Test Item Value Reference Range Interpretation [...] DATE OF LAST MENSTRUAL PERIOD: 07/19/19HCG SERUM [id number] 14:16:00 Test Item Value Reference Range Interpretation Comments HCG SERUM QUAL (test code = HCGQL) NEGATIVE DATE OF LAST MENSTRUAL PERIOD: 07/19/19UA RFLX MICR CULT IF [id number] 14:14:00 Test Item Value Reference Range Interpretation [...] Indication for Culture: OtherOther Indication: PREOPChemistry - [id number] 22:58:00 Test Item Value Reference Range Interpretation Comments Chemistry - 15449.19 mIU/mL See Ranges Males and Specials (test [...] - 3 months 10,000 - 100,000 Type [id number] 22:54:00 Test Item Value Reference Range Interpretation Comments Blood Type Rh (test code = BT) A POSITIVE [id number] 22:43:00 Test Item Value Reference Range Interpretation [...] 10 U/L 8-55 N code = ALT) [id number] 22:37:00 Test Item Value Reference Range Interpretation [...] LPF 0-3 Hyaline UACAST) Urine Source: Urine [id number] 22:25:00 Test Item Value Reference Range Interpretation [...] BASO#) 0.0 thou/uL 0.0-0.2 N Chemistry - [id number] 22:23:00 Test Item Value Reference Range Interpretation Comments Chemistry - Specials POSITIVE NEGATIVE A Method of sensitivity- (test code = BHCGST) Indete rminant: results should be repeated after 48-72 hrs Positive: results may be detected as ear ly as 1 day after the first missed menses.
[2021-03-12 21:10] LABS: Urine Blood 3+ (Negative); Urine Glucose Negative (Negative); Urine Protein 3+ (Negative); Urine Specific Gravity 1.025 (1.005-1.030)
--- NOTE | 2021-03-12 21:21 | RAD REPORT ---
EXAM DESCRIPTION: CT - Stone Protocol - 03/12/2021 9:11 pm CLINICAL HISTORY: Abdominal pain. ABD PAIN COMPARISON: Abdomen Pelvis W Contrast dated 06/16/2020 TECHNIQUE: CT imaging of the abdomen and pelvis was performed without contrast. Solid organ, bowel a nd vascular assessment is limited due to lack of IV and oral contrast. All CT scans are performed using dose optimization technique as appropriate and may include automated exposure control or mA/KV adjustment according to patient size. FINDINGS: The lower lung [place] are clear. No focal liver lesions are identified. Gallbladder is unremarkable. Mildly hyperdense renal pyramids which can be seen with dehydration as well as medullary nephrocalcinosis. No stones are identified, h owever. Mild splenomegaly. No pancreatic masses are identified. No retroperitoneal adenopathy. Fallop asad tube occluder is. No bowel obstruction. Small volume of pelvic free fluid which is nonspecific. The appendix is normal . The osseous structures are within normal limits. IMPRESSION: No acute intra-abdominal or pelvic findings. Pelvic free fluid which is presumably physi ologic. Normal appendix. A limited non-contrast examination was performed as detailed.
[2021-03-12 23:39] LABS: Absolute Lymphocytes (CBC) 0.7 K/uL (0.7-4.9); Basophils % 0.3 % (0-1.3); Hematocrit 34.7 % (36.0-45.0); Lymphocytes % 7.3 % (15.3-44.8); MPV 10.1 fL (7.6-11.3); RBC Red Blood Cell Count 3.95 M/uL (3.86-4.86)
[2021-03-12] MEDS ORDERED: FENTANYL CITR 100 MCG/2 ML ONE (23:42)
[2021-03-12] MEDS ORDERED: ONDANSETRON 4 MG/2 ML VIAL ONE (23:42)
[2021-03-12] MEDS ORDERED: CEFTRIAXONE/SWI 1gm 1 GM/10 ML SYR ONE (23:42)
[2021-03-12] MEDS ORDERED: NA CHLORIDE 0.9% 1,000 ML ONE (23:47)
[2021-03-12 23:54] LABS: ALT/SGPT 22 U/L (12-78); AST/SGOT 15 U/L (15-37); Albumin 3.5 g/dL (3.4-5.0); Alkaline Phosphatase 58 U/L (45-117); BUN Blood Urea Nitrogen 13 mg/dL (7-18); Bicarbonate 24 mmol/L (21-32); Bilirubin Direct 0.2 mg/dL (0-0.2); Bilirubin Total 0.5 mg/dL (0.2-1.0); Glucose Level 113 mg/dL (74-106); Lipase 61 U/L (73-393); Potassium 3.4 mmol/L (3.5-5.1); Protein, Total 7.4 g/dL (6.4-8.2); Sodium Level 140 mmol/L (136-145)
--- NOTE | 2021-03-13 00:32 | ER ---
Nurse's Notes [facility] Name: Melodie Thornton Age: 25 yrs Sex: Female : 1995 Arrival Date: 03/12/2021 Time: 20:11 Bed 28 Private MD: Diagnosis: Bandemia;Acute cystitis Presentation: 03/12 20:47 Chief complaint: Patient states: Abdominal pain x 3 days, abdominal swelling x 1 day. kg Pt saw PCP got diagnosed with UTI started on AMOX-CLAV 875-125 MG first dose taken at 17:00. Coronavirus screen: Client denies travel out of the [place] in the last 14 days. At this time, unable to obtain information related to travel outside the [place] At this time, the client does not indicate any symptoms associated with coronavirus-19. Ebola Screen: Patient negative for fever greater than or equal to 101.5 degrees Fahrenheit, and additional compatible Ebola Virus Disease symptoms Patient denies exposure to infectious person. Patient denies travel to an Ebola-affected area in the 21 days before illness onset. No symptoms or risks identified at this time. Initial Sepsis Screen: Does the patient meet any 2 criteria? Yes Does the patient have a suspected source of infection? No. Patient's initial sepsis screen is negative. Risk Assessment: Do you want to hurt yourself or someone else? Patient reports no desire to harm self or others. Onset of symptoms was March 09, 2021. 20:47 Method Of Arrival: Wheelchair kg 20:47 Acuity: DAVID 3 kg Triage Assessment: 20:50 General: Appears in no apparent distress. Behavior is calm, cooperative, appropriate kg for age, quiet. Pain: Complains of pain in abdomen Pain radiates to Left flank, Right Flank, Lower back. 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 - Social history:: Smoking status: Reported history of juuling and/or vaping. Patient uses alcohol, only on a social basis. Screenin:53 Abuse screen: Denies threats or abuse. Denies injuries from another. Nutritional kg screening: No deficits noted. Tuberculosis screening: No symptoms or risk factors identified. Fall Risk None identified. Assessment: 22:50 General: Appears in no apparent distress. uncomfortable, slender, well groomed, well bs2 developed, well nourished, Behavior is calm, cooperative, appropriate for age. Pain: Complains of pain in left mid back and right mid back Pain currently is 8 out of 10 on a pain scale. Pain began gradually. Neuro: No deficits noted. Cardiovascular: No deficits noted. Respiratory: No deficits noted. GI: Abdomen is flat, Bowel sounds present X 4 quads. Abd is soft and non tender X 4 quads. : Reports burning with urination, urgency, urinary frequency. Derm: No signs and/or symptoms reported regarding the dermatologic system. Musculoskeletal: No signs and/or symptoms reported regarding the musculoskeletal system. 03/13 01:00 General: pt was about to be discharged, she had paperwork in hand, IV had been pulled bs2 and discharge vital signs had been taken. Lab called to report elevated bands in blood work. Jae GERMAN caught pt before they left and informed her that Dr Burk wants to admit her and that we will have to put another IV in and get some blood work, and we would give her some more pain medications and probable antibiotics . Vital Signs: 03/12 20:47 BP 93 / 62; Pulse 91; Resp 20; Temp 98.3(O); Pulse Ox 99% on R/A; Weight 61.23 kg (R); kg Height 5 ft. 3 in. (160.02 cm); Pain 10/10; 03/13 08:06 BP 139 / 81; Pulse 86; Resp 24; Pulse Ox 100% on R/A; Pain 10/10; ch5 03/12 20:47 Body Mass Index 23.91 (61.23 kg, 160.02 cm) kg ED Course: 03/12 20:11 Patient arrived in ED. wm 20:50 Triage completed. kg 20:50 Arm band placed on right wrist. kg 20:53 Patient has correct armband on for positive identification. kg 21:11 CT Stone Protocol In Process Unspecified. EDMS 22:47 Jae Lopez PA is PHCP. cp 22:47 Deepak Burk MD is Attending Physician. cp 23:16 Courtney Goyal RN is Primary Nurse. bs2 23:24 Basic Metabolic Panel Sent. kg 23:24 CBC with Diff Sent. kg 23:24 Hepatic Function Sent. kg 23:24 Lipase Sent. kg 03/13 00:42 No provider procedures requiring assistance completed. IV discontinued, intact, bs2 bleeding controlled, No redness/swelling at site. Pressure dressing applied. 01:02 Yoana Hernandes MD is Hospitalizing Provider. cp 01:41 Inserted saline lock: 18 gauge in left forearm, using aseptic technique. bs2 02:13 COVID swab sent to lab. mw2 02:39 COVID-19 : Document "Date of Symptom Onset" if Symptomatic. Sent. mw2 07:40 Primary Nurse role handed off by Courtney Goyal, ARIANA bd 12:10 IV discontinued, intact, bleeding controlled, Pressure dressing applied. dh3 12:15 Inserted saline lock: 20 gauge in right antecubital area, using aseptic technique. dh3 Administered Medications: 03/12 23:37 Drug: Zofran (Ondansetron) 4 mg Route: IVP; Site: right antecubital; kg 03/13 00:37 Follow up: Response: No adverse reaction bs2 03/12 23:37 Drug: Rocephin - (cefTRIAXone) 1 grams Route: IVPB; Infused Over: 30 mins; Site: right kg antecubital; 03/13 00:37 Follow up: IV Status: Completed infusion bs2 03/12 23:38 Drug: fentaNYL (PF) 25 mcg Route: IVP; Site: right antecubital; kg 03/13 00:37 Follow up: Response: No adverse reaction bs2 07:25 Follow up: pyix error accidentally wasted 98mcg in pyxis, pt was given 25mcg and 75mcg bs2 was wasted, witnessed by Court LANE 03/12 23:38 Drug: NS 0.9% 1000 ml Route: IV; Rate: 1 bolus; Site: right antecubital; kg 03/13 06:44 Follow up: IV Status: Completed infusion bs2 00:37 Drug: Potassium Effervescent Tablet 50 mEq Route: PO; bs2 00:38 Follow up: Response: No adverse reaction bs2 00:37 Drug: Bentyl (dicyclomine) 20 mg Route: PO; bs2 00:38 Follow up: Response: No adverse reaction bs2 00:37 Drug: Ketorolac 15 mg Route: IVP; Site: right antecubital; bs2 00:38 Follow up: Response: No adverse reaction bs2 01:30 Drug: fentaNYL (PF) 25 mcg Route: IVP; Site: left forearm; bs2 06:44 Follow up: Response: No adverse reaction bs2 01:30 Drug: NS 0.9% 1000 ml Route: IV; Rate: 1 bolus; Site: left forearm; bs2 06:44 Follow up: IV Status: Completed infusion bs2 Intake: Outcome: 00:32 Discharge ordered by MD. cp 01:03 Decision to Hospitalize by Provider. cp 06:46 Admitted to Med/surg Other pt is ER Hold bs2 06:46 Condition: stable 06:46 Instructed on the need for admit. 03/14 13:59 Patient left the ED. [email or web address] Signatures: Dispatcher [employer] EDMS Niurka Williamson Corey, PA PA Vinnie Stahl, RN RN jl7 Shaila Luong 3 Ann Marie Waters 2 Joann Faulkner RN RN kg Iva Carranza Bridget, RN RN bs2 Gennaro Burgos, RN RN ch5
--- NOTE | 2021-03-13 00:32 | EDPHYS ---
Physician Documentation [facility] Name: Melodie Thornton Age: 25 yrs Sex: Female : 1995 Arrival Date: 03/12/2021 Time: 20:11 Bed 28 Private MD: ED Physician Deepak Burk HPI: 03/12 23:00 This 25 yrs old Female presents to ER via Wheelchair with complaints of cp KIDNEY INFECTION \\T\\ STOMACH IS BLOATING. 23:00 The patient presents with abdominal pain in the lower abdomen. cp 23:00 Onset: The symptoms/episode began/occurred 3 day(s) ago. cp 23:00 The symptoms radiate to both flanks. Associated signs and symptoms: Pertinent cp positives: constipation, nausea. 23:00 The symptoms are described as constant, sharp. cp 23:00 Severity of pain: in the emergency department the pain is unchanged despite home cp interventions. 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 - Social history:: Smoking status: Reported history of juuling and/or vaping. Patient uses alcohol, only on a social basis. ROS: 23:05 Constitutional: Negative for body aches, chills, fever, poor PO intake. cp 23:05 Eyes: Negative for injury, pain, redness, and discharge. cp 23:05 ENT: Negative for ear pain, sore throat, difficulty swallowing, difficulty handling secretions. 23:05 Cardiovascular: Negative for chest pain, palpitations. 23:05 Respiratory: Negative for cough, shortness of breath, wheezing. 23:05 Abdomen/GI: Positive for abdominal pain, nausea, constipation, abdominal distension, Negative for vomiting, diarrhea. 23:05 : Positive for flank pain, vaginal discharge, Negative for vaginal bleeding. 23:05 Neuro: Negative for altered mental status, headache, weakness. 23:05 All other systems are negative. Exam: 23:10 Constitutional: The patient appears in no acute distress, alert, awake, non-toxic, well cp developed, well nourished, uncomfortable. 23:10 Head/Face: Normocephalic, atraumatic. cp 23:10 Eyes: Periorbital structures: appear normal, Conjunctiva: normal, no exudate, no injection, Sclera: no appreciated abnormality, Lids and lashes: appear normal, bilaterally. 23:10 ENT: External ear(s): are unremarkable, Nose: is normal, Mouth: Lips: moist, Oral mucosa: pink and intact, moist, Posterior pharynx: Airway: no evidence of obstruction, patent. 23:10 Neck: ROM/movement: is normal, is supple, without pain, no range of motions limitations. 23:10 Chest/axilla: Inspection: normal, Palpation: is normal, no crepitus, no tenderness. 23:10 Cardiovascular: Rate: normal, Rhythm: regular. 23:10 Respiratory: the patient does not display signs of respiratory distress, Respirations: normal, no use of accessory muscles, no retractions, labored breathing, is not present, intercostal retractions, are absent, Breath sounds: are clear throughout, no decreased breath sounds, no stridor, no wheezing. 23:10 Abdomen/GI: Inspection: abdomen appears normal, Bowel sounds: active, all quadrants, Palpation: soft, in all quadrants, severe abdominal tenderness, in the right lower quadrant and left lower quadrant, rebound tenderness, is not appreciated. 23:10 Neuro: Orientation: to person, place \\T\\ time. Mentation: is normal. Vital Signs: 20:47 BP 93 / 62; Pulse 91; Resp 20; Temp 98.3(O); Pulse Ox 99% on R/A; Weight 61.23 kg (R); kg Height 5 ft. 3 in. (160.02 cm); Pain 10/; 03/13 08:06 BP 139 / 81; Pulse 86; Resp 24; Pulse Ox 100% on R/A; Pain 10/10; ch5 03/12 20:47 Body Mass Index 23.91 (61.23 kg, 160.02 cm) kg MDM: 03/12 22:55 Patient medically screened. cp 03/13 01:05 Data reviewed: vital signs, nurses notes, lab test result(s), radiologic studies, CT cp scan, I have discussed the patient's presentation/case with the attending Emergency Department Physician; and as a result, I will admit patient. 01:05 Counseling: I had a detailed discussion with the patient and/or guardian regarding: the cp historical points, exam findings, and any diagnostic results supporting the discharge/admit diagnosis, lab results, radiology results. Response to treatment: the patient's symptoms have mildly improved after treatment. 03/12 20:54 Order name: Basic Metabolic Panel; Complete Time: 00:01 kg 03/13 00:01 Interpretation: Normal except: K 3.4; CL 112; GLUC 113. cp 03/12 20:54 Order name: CBC with Diff; Complete Time: 00:55 kg 03/13 00:02 Interpretation: Normal except: HGB 11.8; HCT 34.7; PLT 140; SHUBHAM% 86.6; LYM% 7.3; NEUT A cp 8.1. 03/12 20:54 Order name: Hepatic Function; Complete Time: 00:01 kg 03/13 00:25 Interpretation: Normal except: GLOB 3.9; A/G 0.9. 03/12 20:54 Order name: Lipase; Complete Time: 00:01 kg 03/12 21:10 Order name: Urine Dipstick-Ancillary; Complete Time: 22:48 EDMS 03/12 22:48 Interpretation: Normal except: UKET Trace; UBLD 3+; UPROT 3+; U NIT Positive; UESTR 3+. 03/12 21:12 Order name: Urine --Ancillary (enter results); Complete Time: 02:45 [facility] 03/12 23:41 Order name: Manual Differential; Complete Time: 00:55 EDMS 03/13 00:55 Interpretation: Abnormal: BANDS [F] 12; LYM 9. 03/13 00:56 Order name: Lactate; Complete Time: 02:45 cp 03/13 02:46 Interpretation: Within normal limits: LAC 0.8. 03/13 00:56 Order name: Procalcitonin; Complete Time: 02:45 cp 03/13 02:46 Interpretation: Abnormal: Procalcitonin 0.96. 03/13 00:56 Order name: Blood Culture Adult (2) 03/13 02:14 Order name: COVID-19 : Document "Date of Symptom Onset" if Symptomatic. [facility] 03/13 04:22 Order name: SARS-COV-2 RT PCR EDMS 03/13 05:57 Order name: Comprehensive Metabolic Panel EDMS 03/13 06:03 Order name: CBC with Automated Diff EDMS 03/12 20:54 Order name: IV Saline Lock; Complete Time: 23:23 kg 03/12 20:54 Order name: Labs collected and sent; Complete Time: 23:23 kg 03/12 20:57 Order name: CT Stone Protocol; Complete Time: 22:47 kg 03/12 23:06 Interpretation: Report reviewed. cp 03/12 21:03 Order name: Urine Dipstick-Ancillary (obtain specimen); Complete Time: 21:12 kg 03/12 21:13 Order name: Urine Test (obtain specimen); Complete Time: 21:13 2 03/14 03:01 Order name: CBC with Automated Diff EDMS 03/14 03:07 Order name: Comprehensive Metabolic Panel EDMS Administered Medications: 03/12 23:37 Drug: Zofran (Ondansetron) 4 mg Route: IVP; Site: right antecubital; kg 03/13 00:37 Follow up: Response: No adverse reaction bs2 03/12 23:37 Drug: Rocephin - (cefTRIAXone) 1 grams Route: IVPB; Infused Over: 30 mins; Site: right kg antecubital; 03/13 00:37 Follow up: IV Status: Completed infusion bs2 03/12 23:38 Drug: fentaNYL (PF) 25 mcg Route: IVP; Site: right antecubital; kg 03/13 00:37 Follow up: Response: No adverse reaction bs2 07:25 Follow up: pyix error accidentally wasted 98mcg in pyxis, pt was given 25mcg and 75mcg bs2 was wasted, witnessed by Court LANE 03/12 23:38 Drug: NS 0.9% 1000 ml Route: IV; Rate: 1 bolus; Site: right antecubital; kg 03/13 06:44 Follow up: IV Status: Completed infusion bs2 00:37 Drug: Potassium Effervescent Tablet 50 mEq Route: PO; bs2 00:38 Follow up: Response: No adverse reaction bs2 00:37 Drug: Bentyl (dicyclomine) 20 mg Route: PO; bs2 00:38 Follow up: Response: No adverse reaction bs2 00:37 Drug: Ketorolac 15 mg Route: IVP; Site: right antecubital; bs2 00:38 Follow up: Response: No adverse reaction bs2 01:30 Drug: fentaNYL (PF) 25 mcg Route: IVP; Site: left forearm; bs2 06:44 Follow up: Response: No adverse reaction bs2 01:30 Drug: NS 0.9% 1000 ml Route: IV; Rate: 1 bolus; Site: left forearm; bs2 06:44 Follow up: IV Status: Completed infusion bs2 Disposition Summary: 03/13/21 01:03 Hospitalization Ordered Hospitalization Status: Observation cp Provider: Yoana Hernandes cp Condition: Stable(03/13/21 01:03) cp Problem: new(03/13/21 01:03) cp Symptoms: have improved(03/13/21 01:03) cp Bed/Room Type: Standard cp Location: [facility] ER HOLD(03/13/21 03:22) cg Room Assignment: ERHOLD-(03/13/21 03:22) cg Diagnosis - Bandemia cp - Acute cystitis(03/13/21 01:03) cp Forms: - Medication Reconciliation Form cp - SBAR form cp Addendum: 03/17/2021 01:36 Co-signature as Attending Physician, Deepak Burk MD. [facility] Signatures: Dispatcher [employer] EDJae Layne PA PA cp Kym Nevarez, RN RN Ann Marie Waters mw2 Deepak Burk MD MD 7 Joann Faulkner RN RN Courtney Goyal RN RN bs2 Corrections: (The following items were deleted from the chart) 03/13 01:02 00:32 Home cp cp 01:02 00:32 new cp cp 01:02 00:32 have improved cp cp 01:02 00:32 Stable cp cp 01:02 00:32 Acute cystitis cp cp 03:22 01:03 Telemetry/MedSurg (observation) cp cg 03: 01:03 cp cg
[2021-03-13] MEDS ORDERED: POTASSIUM 25 MEQ EFFERV TAB ONE (00:49)
[2021-03-13] MEDS ORDERED: DICYCLOMINE HCL 10 MG CAP ONE (00:49)
[2021-03-13] MEDS ORDERED: KETOROLAC 30 MG/ML INJ ONE (00:51)
[2021-03-13 00:53] LABS: Blood Morphology Comment NOT SEEN (NOT SEEN); Platelet Estimate ADEQ
[2021-03-13 01:30] LABS: Urine Specific Gravity/Preg 1.025 (1.005-1.030)
[2021-03-13] MEDS ORDERED: FENTANYL CITR 100 MCG/2 ML ONE ×5 (01:50→18:34)
[2021-03-13] MEDS ORDERED: NA CHLORIDE 0.9% 1,000 ML ONE ×2 (01:50→05:43)
[2021-03-13 03:58] VITALS: BMI 23.8
[2021-03-13] MEDS ORDERED: MORPHINE 2 MG/ML SYR IV PRN (04:17)
[2021-03-13] MEDS: NA CHLORIDE 0.9% 1,000 ML IV SCH ×2 (04:17→14:17)
--- NOTE | 2021-03-13 04:50 | P.HP ---
Certification for Inpatient Patient admitted to: Observation With expected LOS: <2 Midnights Patient will require the following post-hospital care: None Practitioner: I am a practitioner with admitting privileges, knowledge of patient current condition, hospital course, and medical plan of care. Services: Services provided to patient in accordance with Admission requirements found in Title 42 Section 412.3 of the Code of Federal Regulations <Ralph De Souza - Last Filed: 03/13/21 04:44> Patient History Date of Service: 03/13/21 Reason for admission: UTI History of Present Illness: Ms. Thornton is a 25 yo F with abdominal and back pain beginning on Thursday. She reports nausea and mild dysuria. Denies night sweats and chills. She says she has had pyelonephritis in the past. K 3.4. Cl 112. Glu 113. procal 0.96. CT A/P with no acute findings. UA positive for leukocyte esterase and nitrates. - Past Medical/Surgical History Past Medical History: Patient denies medical history -: tubal ligation - Family History Family History: Reviewed- Non-Contributory - Social History Smoking Status: Current every day smoker Alcohol use: Yes CD- Drugs: No Caffeine use: Yes Place of Residence: Home <Ralph De Souza - Last Filed: 03/13/21 04:44> Date of Service: 03/13/21 <Yoana Hernandes - Last Filed: 03/14/21 06:09> Allergies Sulfa (Sulfona Allergy (Uncoded 02/25/17 17:36) Unknown Sulfa (Sulfonami Allergy (Uncoded 12/11/16 23:01) Unknown Sulfa (Sulfonamide Antib Allergy (Uncoded 12/11/16 17:09) Unknown Review of Systems 10-point ROS is otherwise unremarkable Gastrointestinal: Abdominal Pain Genitourinary: Dysuria Musculoskeletal: Back Pain <Ralph De Souza - Last Filed: 03/13/21 04:44> Physical Examination - Physical Exam General: Alert, In no apparent distress HEENT: Atraumatic, PERRLA, Mucous membr. moist/pink, EOMI, Sclerae nonicteric Neck: Supple, 2+ carotid pulse no bruit, No LAD, Without JVD or thyroid abnormality Respiratory: Clear to auscultation bilaterally, Normal air movement Cardiovascular: Regular rate/rhythm, Normal S1 S2 Gastrointestinal: Normal bowel sounds, No ascites, No masses, No rebound, No guarding, Tenderness Musculoskeletal: No tenderness Integumentary: No rashes Neurological: Normal gait, Normal speech, Normal strength at 5/5 x4 extr, Normal tone, Normal affect Lymphatics: No axilla or inguinal lymphadenopathy - Studies Laboratory Data (last 24 hrs) 03/12/21 20:50: WBC 9.40, Hgb 11.8 L, Hct 34.7 L, Plt Count 140 L 03/12/21 20:50: Sodium 140, Potassium 3.4 L, BUN 13, Creatinine 0.66, Glucose 113 H, Total Bilirubin 0.5, AST 15, ALT 22, Alkaline Phosphatase 58, Lipase 61 L <Ralph De Souza - Last Filed: 03/13/21 04:44> Assessment and Plan - Plan contiue IV antibiotics and antiemetics pain management as needed repeat AM labs urine culture and blood culture pending DVT ppx Discharge Plan: Home Plan to discharge in: 24 Hours - Advance Directives Does patient have a Living Will: No Does patient have a Durable POA for Healthcare: No - Code Status/Comfort Care Code Status Assessed: Yes (full code ) Critical Care: No Time Spent Managing Pts Care (In Minutes): 70 <Ralph De Souza - Last Filed: 03/13/21 04:44> - Problems (Diagnosis) (1) UTI (urinary tract infection) Current Visit: Yes Status: Acute (2) Pyelonephritis Current Visit: Yes Status: Acute <Yoana Hernandes - Last Filed: 03/14/21 06:09> Date of Service: 03/13/21 Subjective Agree with plan of care as mentioned above. Will continue with antibiotics. Patient still having some pain. Anticipate discharge in the morning Review of Systems 10-point ROS is otherwise unremarkable Physical Examination - Vital Signs Reviewed - Physical Exam General: Alert, In no apparent distress, Oriented x3 Respiratory: Clear to auscultation bilaterally, Normal air movement Cardiovascular: Regular rate/rhythm, Normal S1 S2 Gastrointestinal: Normal bowel sounds, No tenderness Neurological: Normal speech, Normal tone, Normal affect Assessment & Plan - Problems (Diagnosis) (1) UTI (urinary tract infection) Current Visit: Yes Status: Acute (2) Pyelonephritis Current Visit: Yes Status: Acute - Plan Continue with plan of care as mentioned below: 1. Continue with IV fluids 2. Continue IV antibiotic therapy 3. Repeat labs 4. Patient with bandemia and will reassess 5. Plan to discharge with oral antibiotic therapy along with pain medication and outpatient follow with OBGYN 6. GI and DVT prophylaxis <Yoana Hernandes - Last Filed: 03/14/21 06:09>
[2021-03-13] MEDS: FENTANYL CITR 100 MCG/2 ML IV PRN ×3 (05:29→18:20)
[2021-03-13 05:56] LABS: ALT/SGPT 53 U/L (12-78); AST/SGOT 56 U/L (15-37); Albumin 2.7 g/dL (3.4-5.0); Alkaline Phosphatase 64 U/L (45-117); BUN Blood Urea Nitrogen 14 mg/dL (7-18); Bicarbonate 25 mmol/L (21-32); Bilirubin Total 0.5 mg/dL (0.2-1.0); Glucose Level 116 mg/dL (74-106); Protein, Total 5.9 g/dL (6.4-8.2); Sodium Level 143 mmol/L (136-145)
[2021-03-13 05:58] LABS: Absolute Lymphocytes (CBC) 1.3 K/uL (0.7-4.9); Basophils % 0.2 % (0-1.3); Hematocrit 31.6 % (36.0-45.0); Lymphocytes % 14.1 % (15.3-44.8); RBC Red Blood Cell Count 3.61 M/uL (3.86-4.86)
[2021-03-13] MEDS ORDERED: FENTANYL CITR 100 MCG/2 ML IV ONE (08:34)
[2021-03-13] MEDS: ACETAMINOPHEN 500 MG TAB PO PRN ×3 (08:39→18:21)
[2021-03-13] MEDS ORDERED: ACETAMINOPHEN 500 MG TAB ONE ×3 (08:58→18:33)
[2021-03-13] MEDS: ONDANSETRON 4 MG/2 ML VIAL IV PRN ×2 (12:26→18:21)
[2021-03-13] MEDS ORDERED: ONDANSETRON 4 MG/2 ML VIAL ONE ×2 (12:46→18:34)
[2021-03-13] MEDS ORDERED: NA CHLORIDE 0.9% 1,000 ML IV ONE (17:03)
--- NOTE | 2021-03-13 17:06 | P.PN ---
Subjective Date of Service: 03/13/21 Patient clinically doing well. Her biggest complaint is pain. Symptoms are mildly improving. She also has a discharge. She has some dysuria. She is on IV Rocephin. Review of Systems 10-point ROS is otherwise unremarkable Physical Examination - Vital Signs Temperature: 98.5 F Blood Pressure: 98/76 Pulse: 82 Respirations: 18 Pulse Ox (%): 97 - Physical Exam General: Alert, In no apparent distress, Oriented x3 HEENT: Atraumatic, PERRLA, EOMI Neck: Supple, JVD not distended Respiratory: Clear to auscultation bilaterally, Normal air movement Cardiovascular: Regular rate/rhythm, Normal S1 S2 Gastrointestinal: Normal bowel sounds, No tenderness Musculoskeletal: No tenderness Integumentary: No rashes Neurological: Normal speech, Normal tone, Normal affect Lymphatics: No axilla or inguinal lymphadenopathy - Studies Laboratory Data (last 24 hrs) 03/12/21 20:50: WBC 9.40, Hgb 11.8 L, Hct 34.7 L, Plt Count 140 L 03/12/21 20:50: Sodium 140, Potassium 3.4 L, BUN 13, Creatinine 0.66, Glucose 113 H, Total Bilirubin 0.5, AST 15, ALT 22, Alkaline Phosphatase 58, Lipase 61 L Medications List Reviewed: Yes Assessment & Plan - Problems (Diagnosis) (1) UTI (urinary tract infection) Current Visit: Yes Status: Acute (2) Pyelonephritis Current Visit: Yes Status: Acute - Plan Plan: 1. Continue with IV fluids 2. Continue IV antibiotic therapy 3. Repeat labs 4. Patient with bandemia and will reassess 5. Plan to discharge with oral antibiotic therapy along with pain medication and outpatient follow with OBGYN 6. GI and DVT prophylaxis Discharge Plan: Home Plan to discharge in: 24 Hours - Advance Directives Does patient have a Living Will: No Does patient have a Durable POA for Healthcare: No - Code Status/Comfort Care Code Status Assessed: Yes Code Status: Full Code Critical Care: No Time Spent Managing PTS Care (In Minutes): 35
[2021-03-13] MEDS: AZITHROMYCIN IV 250 MG in NA CHLORIDE 0.9% 250 ML IVPB SCH (18:00)
[2021-03-13] MEDS ORDERED: CEFTRIAXONE 1 GM/NS 50 ML 1 GM/50 ML BAG IV SCH (21:00)
[2021-03-13] MEDS ORDERED: CEFTRIAXONE/SWI 1gm 1 GM/10 ML SYR IV SCH (21:00)
[2021-03-13 23:19] VITALS: BP 98/62
[2021-03-13 23:24] VITALS: TEMP 98.9
[2021-03-14] MEDS ORDERED: CEFTRIAXONE/SWI 1gm 1 GM/10 ML SYR ONE (00:28)
[2021-03-14 00:49] VITALS: O2SAT 98
[2021-03-14 02:59] LABS: Absolute Lymphocytes (CBC) 1.5 K/uL (0.7-4.9); Basophils % 0.1 % (0-1.3); Hematocrit 30.3 % (36.0-45.0); Lymphocytes % 16.7 % (15.3-44.8); MPV 10.1 fL (7.6-11.3); RBC Red Blood Cell Count 3.44 M/uL (3.86-4.86)
[2021-03-14 03:07] LABS: ALT/SGPT 38 U/L (12-78); AST/SGOT 18 U/L (15-37); Albumin 2.6 g/dL (3.4-5.0); Alkaline Phosphatase 65 U/L (45-117); BUN Blood Urea Nitrogen 7 mg/dL (7-18); Bicarbonate 26 mmol/L (21-32); Bilirubin Total 0.3 mg/dL (0.2-1.0); Glucose Level 87 mg/dL (74-106); Potassium 3.9 mmol/L (3.5-5.1); Protein, Total 5.9 g/dL (6.4-8.2); Sodium Level 141 mmol/L (136-145)
--- NOTE | 2021-03-14 06:11 | P.DS ---
Discharge Date: 03/14/21 Disposition: ROUTINE DISCHARGE Discharge Condition: GOOD Reason for Admission: UTI - Problems (1) UTI (urinary tract infection) Current Visit: Yes Status: Acute (2) Pyelonephritis Current Visit: Yes Status: Acute Brief History of Present Illness: Ms. Thornton is a 25 yo F with abdominal and back pain beginning on Thursday. She reports nausea and mild dysuria. Denies night sweats and chills. She says she has had pyelonephritis in the past. K 3.4. Cl 112. Glu 113. procal 0.96. CT A/P with no acute findings. UA positive for leukocyte esterase and nitrates. Patient has had multiple issues with this throughout the last few years. She also has a discharge. She has already gotten antibiotics. Will broaden her coverage with azithromycin. Refer to OBGYN for outpatient follow-up. Hospital Course: Patient is clinically doing much better. Symptoms are improved. At this time, patient's clinical symptoms are much better and anticipate discharge. Vital Signs/Physical Exam: Temp Pulse Resp BP Pulse Ox 98.9 F 90 18 98/62 96 03/13/21 23:23 03/13/21 23:23 03/13/21 23:23 03/13/21 23:23 03/13/21 23:23 General: Alert, In no apparent distress, Oriented x3 Laboratory Data at Discharge: WBC 8.70 K/uL (4.3-10.9) 03/14/21 02:27 Hgb 10.2 g/dL (12.0-15.0) L 03/14/21 02:27 Hct 30.3 % (36.0-45.0) L 03/14/21 02:27 Plt Count 123 K/uL (152-406) L 03/14/21 02:27 Sodium 141 mmol/L (136-145) 03/14/21 02:07 Potassium 3.9 mmol/L (3.5-5.1) 03/14/21 02:07 BUN 7 mg/dL (7-18) 03/14/21 02:07 Creatinine 0.66 mg/dL (0.55-1.3) 03/14/21 02:07 Glucose 87 mg/dL (74-106) 03/14/21 02:07 Total Bilirubin 0.3 mg/dL (0.2-1.0) 03/14/21 02:07 AST 18 U/L (15-37) 03/14/21 02:07 ALT 38 U/L (12-78) 03/14/21 02:07 Alkaline Phosphatase 65 U/L (45-117) 03/14/21 02:07 Lipase 61 U/L (73-393) L 03/12/21 20:50 Home Medications: Azithromycin Tab [Zithromax*] 250 mg PO ZPAK #1 emmanuel 03/13/21 Cefdinir [Omnicef] 300 mg PO BID #10 capsule 03/13/21 Hydrocodone 7.5/APAP 325 [[place] 7.5/325 mg] 1 tab PO Q8H PRN #30 tab 03/14/21 New Medications: Hydrocodone 7.5/APAP 325 [[place] 7.5/325 mg] 1 tab PO Q8H PRN #30 tab PRN Reason: Pain Cefdinir [Omnicef] 300 mg PO BID #10 capsule Azithromycin Tab [Zithromax*] 250 mg PO ZPAK #1 emmanuel Physician Discharge Instructions: OK TO DC IV AND DC HOME FOLLOW-UP WITH PRIMARY CARE PROVIDER IN 1-2 WEEKS FOLLOW-UP WITH the INVENTORY PLANNER IN 1-2 WEEKS RETURN TO THE ER IF symptoms worsen CALL or TEXT DR. CASTAÑEDA AT [phone] IF ANY QUESTIONS REGARDING HOSPITAL STAY. PLEASE CALL THE FLOOR AT [phone] IF ANY MEDICATION OR NURSING QUESTIONS. Diet: Regular Activity: Fall precautions Followup: NONE,NONE [Primary Care Provider] - Time spent managing pt's care (in minutes): 25
[2021-03-14] MEDS ORDERED: NA CHLORIDE 0.9% 1,000 ML ONE (07:17)
[2021-03-14] MEDS: AZITHROMYCIN IV 250 MG in NA CHLORIDE 0.9% 250 ML IVPB SCH (09:00)
[2021-03-14 18:38] LABS: Urine Appearance TURBID (Clear); Urine Bilirubin NEGATIVE (Negative); Urine Blood 3+ (Negative); Urine Color YELLOW (Yellow); Urine Glucose NEGATIVE (Negative); Urine Protein 3+ (Negative)
[2021-03-14 18:39] LABS: Urine Microscopic Reflex ORDER UMIC
[2021-03-14 19:24] LABS: Urine Bacteria 20-50 /HPF (<20); Urine Mucus 2+ /HPF (NONE SEEN)
== END 2021-03-14 21:01 | disposition home or self-care (01) ==
LOC: ER 20:07 → ERHOLD 03-13 02:31
PROVIDERS: ADMIT Hospitalist; ATTEND Hospitalist
DX: N10 Acute pyelonephritis (principal); F90.9 Attention-deficit hyperactivity disorder, unspecified type; F17.290 Nicotine dependence, other tobacco product, uncomplicated; Z88.2 Allergy status to sulfonamides; Z20.822 Contact with and (suspected) exposure to COVID-19
CPT/HCPCS: 87040 ×2; 87088; 85025 ×3; 87086; 80048; 36415 ×3; 81025; 80076; 83605; 87077; 87186; 81003; 83690; 80053 ×2; 84145; 76377; 74176; 94760 ×3; 99285; U0003; J0456; J3010 ×6; J0696 ×2; J7050; J7030 ×4; J2405 ×3; G0378 ×3; 81015